=== PATIENT | female | born 1950 | race Caucasian/White ===

== ENCOUNTER 2022-05-11 17:25 | Emergency (ER) | payer SELFPAY ==
[~2022-05-11 17:25] MED LIST: Iopamidol-370 76% 500 ML 1 ML ONE
[2022-05-11 19:28] LABS: #Basophils 0.1 thou/uL (0.0-0.2); #Eosinphils 0.2 thou/uL (0.0-0.7); #Lymphocytes 2.3 thou/uL (1.20-3.40); #Monocytes 0.6 thou/uL (0.11-0.59); #Neutrophils 9.6 thou/uL (1.40-6.50); %Basophils 0.5 % (0.0-1.0); %Eosinophils 1.8 % (0.0-10.0); %Monocytes 4.5 % (0.0-10.0); %Neutrophils 75.2 % (42.0-75.0); Mean Corpuscular HGB CONC 32.8 g/dL (32.0-36.0); Mean Corpuscular Volume 82.5 fL (78.0-98.0); Mean Platelet Volume 8.7 fL (7.4-10.4); Platelet Count 271 thou/uL (130-400); Red Blood Cell (RBC) Count 3.72 mill/uL (4.20-5.40); White Blood Cell (WBC) Count 12.7 thou/uL (4.8-10.8)
[2022-05-11] MEDS ORDERED: Diazepam 5 MG TAB ONE (19:39)
[2022-05-11 19:41] LABS: ALT (SGPT) 14 U/L (8-55); AST (SGOT) 16 U/L (5-34); Albumin 3.9 g/dL (3.4-4.8); Alkaline Phosphatase 133 U/L (40-110); Anion Gap 17 mmol/L (10-20); BUN (Urea Nitrogen) 17 mg/dL (9.8-20.1); Bilirubin, Total 0.3 mg/dL (0.2-1.2); Calc. Creatinine Clearance 0 mL/min (70-130); Calcium 9.4 mg/dL (7.8-10.44); Carbon Dioxide 25 mmol/L (23-31); Chloride 101 mmol/L (98-107); Estimated GFR 63; Globulin 2.7 g/dL (2.4-3.5); Glucose 150 mg/dL (83-110); Potassium 4.4 mmol/L (3.5-5.1); Protein, Total 6.6 g/dL (5.8-8.1); Sodium 139 mmol/L (136-145)
== END 2022-05-11 22:50 | disposition home or self-care (01) ==
LOC: ERS 17:25
DX: H81.13 Benign paroxysmal vertigo, bilateral (principal); H61.21 Impacted cerumen, right ear; I10 Essential (primary) hypertension; Z87.891 Personal history of nicotine dependence
CPT/HCPCS: 36415; 70496; 70498; 71045; 80053; 83880; 84484; 85025; 93005; Q9967

== ENCOUNTER 2024-01-21 17:03 | Emergency (ER) | payer MEDICARE | END 2024-01-21 21:50 | disposition home or self-care (01) | LOC: ERS 17:03 | DX: S80.211A Abrasion, right knee, initial encounter (principal); D64.9 Anemia, unspecified; I10 Essential (primary) hypertension; E11.9 Type 2 diabetes mellitus without complications; Z87.891 Personal history of nicotine dependence; W18.30XA Fall on same level, unspecified, initial encounter | CPT/HCPCS: 36415; 71045; 80053; 83880; 85025; 90471; 90715; 96372; J1885 ==

== ENCOUNTER 2024-02-13 13:56 | Inpatient (IN) | payer MEDICARE ==
[2024-02-13] MEDS ORDERED: methylPREDNISolone Sod Succ/PF 125 MG/2 ML VIAL ONE (14:21)
[2024-02-13] MEDS ORDERED: Ipratropium/Albuterol 3 ML NEB ONE ×2 (14:30→14:36)
[2024-02-13 14:48] LABS: #Basophils 0.04 10x3/uL (0.0-0.2); %Basophils 0.5 % (0.0-1.0); %Lymphocytes 16.4 % (21.0-51.0); %Monocytes 5.5 % (0.0-10.0); %Neutrophils 76.1 % (42.0-75.0); Hematocrit 26.4 % (36.0-47.0); Hemoglobin 8.2 g/dL (12.0-16.0); Mean Corpuscular HGB CONC 31.1 g/dL (32.0-36.0); Mean Corpuscular Hemoglobin 26.5 pg (27.0-31.0); Mean Corpuscular Volume 85.2 fL (78.0-98.0); Platelet Count 298 10x3/uL (130-400); RBC Distribution Width 17.4 % (11.5-14.5)
[2024-02-13 15:09] LABS: ALT (SGPT) 7 U/L (8-55); AST (SGOT) 15 U/L (5-34); Albumin 3.3 g/dL (3.4-4.8); Alkaline Phosphatase 130 U/L (40-110); Anion Gap 13 mmol/L (10-20); BUN (Urea Nitrogen) 13 mg/dL (9.8-20.1); Bilirubin, Total 0.6 mg/dL (0.2-1.2); Calc. Creatinine Clearance 0 mL/min (70-130); Calcium 9.5 mg/dL (7.8-10.44); Carbon Dioxide 25 mmol/L (23-31); Chloride 105 mmol/L (98-107); Estimated GFR 75; Globulin 3.5 g/dL (2.4-3.5); Glucose 114 mg/dL (83-110); Lipase 14 U/L (8-78); Magnesium 1.7 mg/dL (1.6-2.6); Potassium 3.7 mmol/L (3.5-5.1); Protein, Total 6.8 g/dL (5.8-8.1); Sodium 139 mmol/L (136-145)
[2024-02-13 15:12] LABS: Troponin I 0.012 ng/mL (< 0.028)
[2024-02-13] MEDS ORDERED: Nitroglycerin 2% Ointment 1 INCH/1 GM Packet ONE (15:27)
[2024-02-13] MEDS ORDERED: Aspirin Chewable 81 MG TAB ONE (15:28)
[2024-02-13 15:31] LABS: Influenza A by NAA Not Detected (NotDetected); Influenza B by NAA Not Detected (NotDetected); SARS-CoV-2 NAA Rapid Test Not Detected (NotDetected)
[2024-02-13] MEDS ORDERED: Furosemide 40 MG (4 mL) VIAL ONE (16:14)
[2024-02-13] MEDS ORDERED: cefTRIAXone (ROCEPHIN) 2 GM VIAL ONE (16:14)
[2024-02-13] MEDS ORDERED: Sodium Chloride 0.9% 100 ML ONE (16:14)
[2024-02-13] MEDS ORDERED: Enoxaparin 100 MG (1 mL) SYRINGE ONE (16:14)
[2024-02-13] MEDS ORDERED: Enoxaparin 80 MG (0.8 mL) SYRINGE ONE (16:18)
[2024-02-13] MEDS ORDERED: Enoxaparin 30 MG (0.3 mL) SYRINGE ONE (16:18)
[2024-02-13] MEDS ORDERED: Ondansetron PF 4 MG/2 ML Vial IVP PRN (17:45)
[2024-02-13] MEDS ORDERED: HYDROcodone/Acetaminophen 5/325 mg Tablet PO PRN ×2 (17:45)
[2024-02-13] MEDS ORDERED: Ondansetron ODT 4 MG TAB PO PRN (17:45)
[2024-02-13] MEDS ORDERED: Dextrose 50% Abboject 50 ML SYRINGE SLOW IVP PRN (17:53)
[2024-02-13] MEDS ORDERED: HumaLOG 300 UNITS/3 ML VIAL SC PRN (17:53)
[2024-02-13] MEDS ORDERED: Glucagon 1 MG/ML KIT IM PRN (17:53)
[2024-02-13] MEDS ORDERED: Dextrose 5% in Water 1,000 ML IV PRN (17:53)
[2024-02-13] MEDS ORDERED: Ipratropium/Albuterol 3 ML NEB NEB PRN (18:19)
[2024-02-13] MEDS ORDERED: Electrolyte Replacement Protocol FS SCH (18:30)
[2024-02-13 18:41] LABS: Lactic Acid 1.5 mmol/L (0.5-2.2)
[2024-02-13 18:46] LABS: Anion Gap 15 mmol/L (10-20); BUN (Urea Nitrogen) 14 mg/dL (9.8-20.1); Calc. Creatinine Clearance 0 mL/min (70-130); Calcium 9.8 mg/dL (7.8-10.44); Carbon Dioxide 26 mmol/L (23-31); Chloride 102 mmol/L (98-107); Estimated GFR 70; Glucose 165 mg/dL (83-110); Potassium 3.5 mmol/L (3.5-5.1); Sodium 139 mmol/L (136-145)
[2024-02-13] MEDS: Doxycycline 100 MG in Sodium Chloride 0.9% 100 ML IVPB SCH (19:26)
[2024-02-13] MEDS ORDERED: Insulin Regular, Human 100 UNIT/ML 10 ML VIAL ONE (20:31)
[2024-02-13] MEDS ORDERED: Potassium Chloride 20 MEQ TAB ONE (21:32)
[2024-02-13] MEDS ORDERED: Magnesium 2 GM/50 ML BAG (IN WATER) ONE (21:32)
[2024-02-13] MEDS: Magnesium 2 GM/50 ML(in water) 2 GM in Premix 1 BAG IVPB SCH (21:41)
[2024-02-13] MEDS: Potassium Chloride 20 MEQ TAB PO SCH (21:41)
[2024-02-13 22:53] VITALS: BMI 43.6
[2024-02-14] MEDS: Ipratropium/Albuterol 3 ML NEB NEB SCH (01:06)
[2024-02-14] MEDS: Doxycycline 100 MG in Sodium Chloride 0.9% 100 ML IVPB SCH (05:28)
[2024-02-14 06:04] LABS: #Basophils Less than 0.03 10x3/uL (0.0-0.2); #Eosinphils Less than 0.03 10x3/uL (0.0-0.7); %Basophils 0.1 % (0.0-1.0); %Lymphocytes 8.1 % (21.0-51.0); %Neutrophils 89.8 % (42.0-75.0); Hematocrit 28.7 % (36.0-47.0); Hemoglobin 8.7 g/dL (12.0-16.0); Mean Corpuscular HGB CONC 30.3 g/dL (32.0-36.0); Mean Corpuscular Hemoglobin 25.6 pg (27.0-31.0); Mean Corpuscular Volume 84.4 fL (78.0-98.0); Mean Platelet Volume 10.2 fL (7.4-10.4); Platelet Count 294 10x3/uL (130-400); RBC Distribution Width 17.4 % (11.5-14.5)
[2024-02-14 06:31] LABS: Anion Gap 14 mmol/L (10-20); BUN (Urea Nitrogen) 17 mg/dL (9.8-20.1); Calc. Creatinine Clearance 94 mL/min (70-130); Calcium 9.2 mg/dL (7.8-10.44); Carbon Dioxide 25 mmol/L (23-31); Chloride 104 mmol/L (98-107); Estimated GFR 66; Glucose 220 mg/dL (83-110); Iron 29 ug/dL (50-170); Iron Binding Capacity, Total 383 mcg/dL (265-497); Potassium 4.1 mmol/L (3.5-5.1); Sodium 139 mmol/L (136-145)
[2024-02-14] MEDS: Magnesium 2 GM/50 ML(in water) 2 GM in Premix 1 BAG IVPB SCH (09:28)
[2024-02-14] MEDS: cefTRIAXone\\ROCEPHIN 1 GM in Sodium Chloride 0.9% 100 ML IVPB SCH (09:29)
[2024-02-14] MEDS: Spironolactone 25 MG TAB PO SCH (14:42)
[2024-02-14] MEDS: Aspirin 81 mg Enteric Coated Tablet PO SCH (14:43)
[2024-02-14] MEDS: HumaLOG 300 UNITS/3 ML VIAL SC PRN (17:26)
[2024-02-14] MEDS ORDERED: Pantoprazole DR 40 MG TAB PO PRN (17:54)
[2024-02-14] MEDS: diphenhydrAMINE 25 MG CAP PO SCH (20:00)
[2024-02-14] MEDS: metFORMIN 500 MG TAB PO SCH (21:19)
[2024-02-14] MEDS: Atorvastatin Calcium 40 MG TAB PO SCH (21:20)
[2024-02-15 05:43] LABS: #Basophils 0.04 10x3/uL (0.0-0.2); %Basophils 0.3 % (0.0-1.0); %Eosinophils 1.5 % (0.0-10.0); %Lymphocytes 11.4 % (21.0-51.0); %Monocytes 6.8 % (0.0-10.0); %Neutrophils 79.6 % (42.0-75.0); Hematocrit 27.1 % (36.0-47.0); Hemoglobin 8.1 g/dL (12.0-16.0); Mean Corpuscular HGB CONC 29.9 g/dL (32.0-36.0); Mean Corpuscular Hemoglobin 25.9 pg (27.0-31.0); Mean Corpuscular Volume 86.6 fL (78.0-98.0); Mean Platelet Volume 10.2 fL (7.4-10.4); Platelet Count 296 10x3/uL (130-400); RBC Distribution Width 17.5 % (11.5-14.5); Red Blood Cell (RBC) Count 3.13 mill/uL (4.20-5.40)
[2024-02-15 06:09] LABS: Anion Gap 14 mmol/L (10-20); BUN (Urea Nitrogen) 21 mg/dL (9.8-20.1); Calc. Creatinine Clearance 101 mL/min (70-130); Calcium 9.1 mg/dL (7.8-10.44); Carbon Dioxide 25 mmol/L (23-31); Cardiac Risk 4.2 (Less than 4.5); Chloride 103 mmol/L (98-107); Cholesterol 121 mg/dl (< 200 Desired); Estimated GFR 70; Glucose 162 mg/dL (83-110); HDL Cholesterol 29 mg/dL (>60 Neg Risk); LDL Cholesterol, Calculated 75 mg/dL; Potassium 3.6 mmol/L (3.5-5.1); Sodium 138 mmol/L (136-145); Triglycerides 87 mg/dL (Less than 150)
[2024-02-15 06:42] LABS: Hemoglobin A1c 6.1 % (4.0-6.0)
[2024-02-15] MEDS ORDERED: Spironolactone 25 MG TAB PO SCH (08:00)
[2024-02-15] MEDS ORDERED: Pioglitazone HCl 15 MG TAB PO SCH (09:00)
[2024-02-15] MEDS: Empagliflozin 10 MG TAB PO SCH (09:26)
[2024-02-15] MEDS: Clopidogrel Bisulfate 75 MG TAB PO SCH (09:26)
[2024-02-15] MEDS: Ferrous Sulfate 325 MG TAB PO SCH (09:26)
[2024-02-15] MEDS: Pantoprazole DR 40 MG TAB PO SCH (09:26)
[2024-02-15] MEDS: Spironolactone 25 MG TAB PO SCH (11:34)
[2024-02-15] MEDS: Lisinopril 20 MG TAB PO SCH (14:27)
[2024-02-15] MEDS: Hydrochlorothiazide 25 MG TAB PO SCH (14:28)
[2024-02-16 04:04] LABS: #Basophils Less than 0.03 10x3/uL (0.0-0.2); %Basophils 0.2 % (0.0-1.0); %Eosinophils 1.9 % (0.0-10.0); %Lymphocytes 11.8 % (21.0-51.0); %Monocytes 5.9 % (0.0-10.0); %Neutrophils 79.9 % (42.0-75.0); Hematocrit 25.6 % (36.0-47.0); Hemoglobin 7.8 g/dL (12.0-16.0); Mean Corpuscular HGB CONC 30.5 g/dL (32.0-36.0); Mean Corpuscular Hemoglobin 26.3 pg (27.0-31.0); Mean Corpuscular Volume 86.2 fL (78.0-98.0); Mean Platelet Volume 9.6 fL (7.4-10.4); Platelet Count 253 10x3/uL (130-400); RBC Distribution Width 17.2 % (11.5-14.5); Red Blood Cell (RBC) Count 2.97 mill/uL (4.20-5.40)
[2024-02-16 04:27] LABS: Anion Gap 13 mmol/L (10-20); BUN (Urea Nitrogen) 19 mg/dL (9.8-20.1); Calc. Creatinine Clearance 104 mL/min (70-130); Calcium 9.4 mg/dL (7.8-10.44); Carbon Dioxide 27 mmol/L (23-31); Chloride 102 mmol/L (98-107); Estimated GFR 73; Glucose 132 mg/dL (83-110); Magnesium 1.9 mg/dL (1.6-2.6); Potassium 3.9 mmol/L (3.5-5.1); Sodium 138 mmol/L (136-145)
[2024-02-16] MEDS: Magnesium 2 GM/50 ML(in water) 2 GM in Premix 1 BAG IVPB SCH (08:51)
[2024-02-16] MEDS: Lisinopril 20 MG TAB PO SCH (08:53)
[2024-02-16] MEDS: Hydrochlorothiazide 25 MG TAB PO SCH (08:53)
[2024-02-16 10:35] LABS: Hematocrit 28.2 % (36.0-47.0); Hemoglobin 8.4 g/dL (12.0-16.0)
[2024-02-17 04:51] LABS: Hemoglobin 8.1 g/dL (12.0-16.0)
[2024-02-17] MEDS: GoLYTELY 4,000 ml Bottle PO SCH (22:00)
[2024-02-18 04:33] LABS: Hematocrit 29.2 % (36.0-47.0); Hemoglobin 8.8 g/dL (12.0-16.0)
[2024-02-18] MEDS ORDERED: PROPOFOL 40 ML ONE (11:36)
[2024-02-18] MEDS ORDERED: fentaNYL 50 mcg/mL 1 mL Vial ONE (11:36)
[2024-02-18] MEDS ORDERED: Lidocaine 1% PF 5 ML VIAL ONE (11:44)
[2024-02-18] MEDS ORDERED: PHENYLEPHRINE-NS 100 MCG/ML 10 ML SYRINGE ONE (11:44)
[2024-02-18 15:33] VITALS: BP 142/78; TEMP 97.3
== END 2024-02-18 15:33 | disposition home or self-care (01) | DRG 193 ==
LOC: ERS 13:56 → ERHOLD 16:16 → 2NO 22:34
PROVIDERS: ADMIT Internal Medicine; ATTEND Family Medicine
PROC: 3E03329 Introduction of Other Anti-infective into Peripheral Vein, Percutaneous Approach (ICD-10-PCS; 2024-02-13)
PROC: 0DJ08ZZ Inspection of Upper Intestinal Tract, Via Natural or Artificial Opening Endoscopic (ICD-10-PCS; principal; 2024-02-18)
PROC: 0DBP8ZX Excision of Rectum, Via Natural or Artificial Opening Endoscopic, Diagnostic (ICD-10-PCS; 2024-02-18)
PROC: 0DBL8ZX Excision of Transverse Colon, Via Natural or Artificial Opening Endoscopic, Diagnostic (ICD-10-PCS; 2024-02-18)
PROC: 0DBN8ZX Excision of Sigmoid Colon, Via Natural or Artificial Opening Endoscopic, Diagnostic (ICD-10-PCS; 2024-02-18)
DX: J15.9 Unspecified bacterial pneumonia (principal); I50.33 Acute on chronic diastolic (congestive) heart failure; J96.01 Acute respiratory failure with hypoxia; Z68.41 Body mass index [BMI] 40.0-44.9, adult; I11.0 Hypertensive heart disease with heart failure; E11.9 Type 2 diabetes mellitus without complications; I25.10 Atherosclerotic heart disease of native coronary artery without angina pectoris; R91.1 Solitary pulmonary nodule; M25.561 Pain in right knee; E78.5 Hyperlipidemia, unspecified; E66.01 Morbid (severe) obesity due to excess calories; D50.9 Iron deficiency anemia, unspecified; Z95.5 Presence of coronary angioplasty implant and graft; Z98.890 Other specified postprocedural states; Z87.891 Personal history of nicotine dependence; Z88.5 Allergy status to narcotic agent; Z79.899 Other long term (current) drug therapy; Z79.84 Long term (current) use of oral hypoglycemic drugs; Z79.82 Long term (current) use of aspirin; I35.0 Nonrheumatic aortic (valve) stenosis; K57.90 Diverticulosis of intestine, part unspecified, without perforation or abscess without bleeding; K63.5 Polyp of colon
CPT/HCPCS: 36415; 36416; 71045; 71275; 80048; 80053; 80061; 82274; 82550; 82728; 83036; 83540; 83550; 83605; 83690; 83735; 83880; 84443; 84484; 85014; 85018; 85025; 87040; 88305; 93005; 93306; 94640; 96365; 96375; J0696; J1650; J1815; J1940; J2704; J2930; J3010; J3475; J3490; J7620